=== PATIENT | male | born 1995 | race Caucasian/White ===

== ENCOUNTER 2017-10-21 19:21 | Emergency (ER) | payer SELFPAY ==
[2017-10-21 19:28] VITALS: PULSE 64
--- NOTE | 2017-10-21 20:06 | C.PDOC ---
History Of Present Illness 22yo male, otherwise well, presents to ER with complaints of lower back pain after lifting weights. Patient states he felt a pull in his lower back after bending. He denies any fall, direct injury, weakness, numbness, bowel or bladder dysfunction. Patient offers no other medical complaints. PMD: Clinic Time Seen by Provider: 10/21/17 19:35 Chief Complaint (Nursing): Back Pain History Per: Patient History/Exam Limitations: no limitations Current Symptoms Are (Timing): Still Present Quality Of Discomfort: "Pain" Previous Symptoms: None Associated Symptoms: denies: Incontinence, New Weakness, New Numbness Additional History Per: Patient Past Medical History Reviewed: Historical Data, Nursing Documentation, Vital Signs Vital Signs: Last Vital Signs Temp 98.1 F 10/21/17 20:12 Pulse 64 10/21/17 20:12 Resp 16 10/21/17 20:12 BP 148/81 10/21/17 20:12 Pulse Ox 100 10/21/17 21:35 - Medical History PMH: No Chronic Diseases Surgical History: No Surg Hx Family History: States: No Known Family Hx - Social History Hx Tobacco Use: No Hx Alcohol Use: Yes Hx Substance Use: No - Immunization History Hx Tetanus Toxoid Vaccination: No Hx Influenza Vaccination: No Hx Pneumococcal Vaccination: No Review Of Systems Except As Marked, All Systems Reviewed And Found Negative. Genitourinary: Negative for: Incontinence, Hematuria Musculoskeletal: Positive for: Back Pain Neurological: Negative for: Weakness, Numbness Physical Exam - Physical Exam Appears: Non-toxic, No Acute Distress Skin: Normal Color, Warm, Dry Head: Atraumatic, Normacephalic Eye(s): bilateral: Normal Inspection Neck: Normal ROM, Supple Chest: Symmetrical Cardiovascular: Rhythm Regular Respiratory: Normal Breath Sounds Gastrointestinal/Abdominal: Normal Exam, Soft Back: No CVA Tenderness, No Vertebral Tenderness, Paraspinal Tenderness (lumbar) Extremity: Normal ROM, No Deformity Neurological/Psych: Oriented x3 Gait: Steady ED Course And Treatment O2 Sat by Pulse Oximetry: 100 (RA) Pulse Ox Interpretation: Normal Progress Note: Patient given Flexeril 10mg PO and TOradol 30mg IM. He reports improvement to pain and is feeling much better. Patient able to ambulate in ER without difficulty. Patient is stable for discharge home. Return precautions discussed and understood by pt Disposition Counseled Patient/Family Regarding: Diagnosis, Need For Followup, Rx Given - Disposition Referrals: [facility] [place] [facility] [Outside] Disposition: HOME/ ROUTINE Disposition Time: 20:01 Condition: STABLE Additional Instructions: Please follow up with PMD Take medications as directed Avoid heavy lifting for at least 1 week Return to ER if worse Prescriptions: Cyclobenzaprine [Cyclobenzaprine HCl] 10 mg PO HS #10 tab Ibuprofen [Motrin] 600 mg PO Q6H #24 tab Instructions: Lumbar Muscle Strain (DC) Forms: [employer] (Wolof) - Clinical Impression Clinical Impression: Low back strain - PA / [employer] / Resident Statement MD/DO has reviewed & agrees with the documentation as recorded. - Scribe Statement The provider has reviewed the documentation as recorded by the Scribe (Jennifer Martinez) Provider Attestation: All medical record entries made by the Scribe were at my direction and personally dictated by me. I have reviewed the chart and agree that the record accurately reflects my personal performance of the history, physical exam, medical decision making, and the department course for this patient. I have also personally directed, reviewed, and agree with the discharge instructions and disposition.
[2017-10-21 20:21] VITALS: BP 148/81; RESP 16; TEMP 98.1
[2017-10-21 21:30] VITALS: O2SAT 100
== END 2017-10-21 20:22 | disposition home or self-care (01) ==
LOC: C.ER 19:21
DX: S39.012A Strain of muscle, fascia and tendon of lower back, initial encounter (principal); X50.0XXA Overexertion from strenuous movement or load, initial encounter; Y93.89 Activity, other specified
CPT/HCPCS: 96372; 99284; J1885